=== PATIENT | female | born 1955 | race Caucasian/White ===

== ENCOUNTER 2024-09-06 20:49 | Emergency (ER) | payer MEDICARE, OTHER, SELFPAY ==
[2024-09-06 20:50] VITALS: BP 167/98
[2024-09-06 21:26] LABS: % Basophils 0.4 % (0-2); % Eosinophils 1.4 % (0-6); % Immature Granulocytes 0.2 % (0-0.5); % Lymphocytes 22.5 % (20.5-51.1); % Monocytes 6.8 % (1.7-9.3); % Neutrophils 68.7 % (42.2-75.2); Absolute Eosinophils 0.1 10^3/uL (0-0.7); Absolute Lymphocytes 2.1 10^3/uL (1.2-3.4); Absolute Monocytes 0.6 10^3/uL (0.1-0.6); Absolute Neutrophils 6.5 10^3/uL (1.4-6.5); Hematocrit 39.9 % (37.0-47.0); Hemoglobin 13.8 g/dL (12.0-16.0); Mean Corp Hgb Conc. 34.6 g/dL (33.0-37.0); Mean Corpuscular Hgb 29.8 pg (27.0-31.0); Mean Corpuscular Volume 86.2 fL (81.0-99.0); Mean Platelet Volume 9.6 fL (7.4-10.4); Nucleated Red Blood Cells % 0 %; Platelet Count 239 10^3/uL (130-400); Red Blood Cell Count 4.63 10^6/uL (4.20-5.40); Red Cell Dist. Width 12.6 % (11.5-14.5); White Blood Cell Count 9.4 10^3/uL (4.8-10.8)
[2024-09-06 21:34] LABS: INR 0.99; PT 12.9 Sec (11.4-14.6)
[2024-09-06 21:35] LABS: APTT 26.7 Sec (23.4-35.0)
[2024-09-06 21:37] LABS: ALT (SGPT) 22 U/L (0-35); AST (SGOT) 26 U/L (14-36); Albumin 4.7 g/dl (3.5-5.0); Alkaline Phosphatase 66 U/L (38-126); Blood Urea Nitrogen 19 mg/dl (7-17); Carbon Dioxide 33 mmol/L (22-30); Chloride 102 mmol/L (98-107); Glucose 171 mg/dl (70-99); Potassium 4.8 mmol/L (3.5-5.1); Sodium 145 mmol/L (135-145); Total Bilirubin 0.4 mg/dl (0.2-1.3); Total Protein 7.4 g/dl (6.3-8.2); eGFR > 60.00
[2024-09-06 21:48] LABS: Troponin I < 0.012 ng/ml
[2024-09-06 22:51] VITALS: BP 151/73
--- NOTE | 2024-09-06 23:04 | ED.CVA ---
History of Present Illness
<PAMELA Mcmahon - Last Filed: 09/07/24 05:25>
General
Chief Complaint: CVA/TIA Symptoms
Source: patient and significant other
Exam Limitations: none
Time Seen by Provider: 09/06/24 23:04
Nursing documentation reviewed up to this point in time: agreed with
Onset of Stroke Symptoms
Onset of symptoms known: No
Time pt last seen normal is known: No
History of Present Illness
History of Present Illness:
Patient is a 69yo F w/ PMH of HLD presents w/ AMS for 2 hrs about 6 hours ago. Pt has since returned to baseline mental status. States she was at the gym she regularly goes to and forgot where she was/how to get home. manager desktop at the gym helped
her and came to take her home. He states that she had no memory of what happened when he came to gym, but she had since regained some memory of the incident. states the pt seemed out of it for about 1.5 hrs after he picked her up.
They consulted PCP who told them to come to ER. Denies any symptoms before or after memory lapse. Notes increased neck pain x1 week (hx of OA). She denies any recent head trauma. Reports mild, short-lived SOLORZANO after daily Flonase.
Review of Systems
<PAMELA Mcmahon - Last Filed: 09/07/24 05:25>
Review of Systems
Constitutional: Denies fever, fatigue or chills
Respiratory: Denies cough or trouble breathing
Cardiac: Denies chest pain, palpitations or syncope
ABD/GI: Denies abdominal pain, nausea, vomiting, diarrhea or constipated
: Denies dysuria, frequency or urgency
Musculoskeletal: Reports neck pain
Skin: Reports no symptoms
Neurological: Denies dizzy, headache, weakness or numbness
Psychiatric: Reports anxiety
Phy Exam
<PAMELA Mcmahon - Last Filed: 09/07/24 05:25>
General Physical Exam
General Presentation: well appearing
General age: appears stated age
General Skin: warm and dry
General Habitus: normal
General Mental: alert
ENT Exam
ENT Exam: normocephalic
Cardiovascular Exam
Cardiovascular Exam: regular rate/rhythm, no edema, no gallop and no murmur
Pulmonary Exam
Pulmonary Exam: lungs clear, no respiratory distress, no rales, no crackles, no rhonchi and no wheezing
Neurological Exam
Neurological Exam: alert, oriented x3, no sensory deficits, speech normal, cerebellum intact and normal gait
Course
Cristhianlt;Roma Barron [facility] - Last Filed: 09/07/24 05:25>
Orders/Labs/Results
Orders:
Orders
09/06/24 20:56
Electrocardiogram (*1) Urgent
Reason for Study: Vertigo / Dizzy
CT Head W/o Iv Contrast Urgent
Comment:
Reason For Exam: memory loss
09/06/24 20:57
EKG- Treatment ONCE
09/06/24 21:09
Complete Blood Count/With Diff Urgent
Comprehensive Metabolic Panel Urgent
PTT Urgent
Prothrombin Time Urgent
Troponin I Urgent
Abnormal Lab Results
09/06/24
21:09
Carbon Dioxide 33 H mmol/L
(22-30)
BUN 19 H mg/dl
(7-17)
Glucose 171 H mg/dl
(70-99)
09/06/24 21:09
09/06/24 21:09
Vital Signs
Initial and Last Documented VS:
Initial Vital Signs
Temp Pulse Resp BP Pulse Ox
99.4 F 110 17 167/98 95
09/06/24 20:50 09/06/24 20:50 09/06/24 20:50 09/06/24 20:50 09/06/24 20:50
Last Documented Vital Signs
Temp Pulse Resp BP Pulse Ox
99.4 F 92 18 137/70 97
09/06/24 20:50 09/07/24 01:00 09/07/24 01:00 09/07/24 01:00 09/07/24 01:00
<Larisa Hyatt, DO - Last Filed: 09/07/24 01:00>
Orders/Labs/Results
Orders:
Orders
09/06/24 20:56
Electrocardiogram (*1) Urgent
Reason for Study: Vertigo / Dizzy
CT Head W/o Iv Contrast Urgent
Comment:
Reason For Exam: memory loss
09/06/24 20:57
EKG- Treatment ONCE
09/06/24 21:09
Complete Blood Count/With Diff Urgent
Comprehensive Metabolic Panel Urgent
PTT Urgent
Prothrombin Time Urgent
Troponin I Urgent
Abnormal Lab Results
09/06/24
21:09
Carbon Dioxide 33 H mmol/L
(22-30)
BUN 19 H mg/dl
(7-17)
Glucose 171 H mg/dl
(70-99)
09/06/24 21:09
09/06/24 21:09
Vital Signs
Blood pressure: 137/70
Initial and Last Documented VS:
Initial Vital Signs
Temp Pulse Resp BP Pulse Ox
99.4 F 110 17 167/98 95
09/06/24 20:50 09/06/24 20:50 09/06/24 20:50 09/06/24 20:50 09/06/24 20:50
Last Documented Vital Signs
Temp Pulse Resp BP Pulse Ox
99.4 F 92 18 137/70 97
09/06/24 20:50 09/07/24 01:00 09/07/24 01:00 09/07/24 01:00 09/07/24 01:00
<PAMELA Mcmahon - Last Filed: 09/07/24 05:25>
*Critical Care Note
Total Time (30-74mins, 75-104mins- exclusive of procedures): Not Applicable
<Larisa Hyatt DO - Last Filed: 09/07/24 01:00>
*Radiology
Radiology exam reviewed: radiology read reviewed (CT of the head is unremarkable)
*Pulse Oximetry
Patient hypoxic: no
*EKG
Interpreted by ED Provider?: Yes
Comparison EKG: no comparison EKG present
Rate: tachycardiac
Rhythm: sinus
[place]: normal axis
Interval: normal interval
QRS Pattern: normal QRS
Ischemia: no ischemia
*Bobbin Coil Winder Interpretation
Rate: normal
Interpretation: normal
Rhythm: sinus
ED Attending Note
<PAMELA Mcmahon - Last Filed: 09/07/24 05:25>
-
Portions of this chart may have been created with voice recognition software.� Occasional wrong word or��sound alike� substitutions may have occurred due to the inherent limitations of voice recognition software.
<Larisa Hyatt DO - Last Filed: 09/07/24 01:00>
ED Attending Note
Patient seen and examined by attending physician: Yes
I performed the substantive portion of visit, reviewed & personally made and approve the management plan that is documented in note by myself or VINOD.: Yes
ED Attending Note:
This is a 69-year-old woman who resides at home with her . She has remote history of breast cancer undergoing lumpectomy 2004 then bilateral mastectomy 2008. 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
her pelvic bone a number of years ago. She does follow annually with oncologist at [place] and thus far no recurrence.
She has history of anxiety/depression chronically maintained on Effexor, trazodone.
She is generally quite active, works out on a regular basis and while at the gym tonight she developed sudden onset of confusion, asked for help from a stranger that she could not remember where she was, was able to to be directed to the desk, now
remembers that she recognized the staff and they helped her to call her who picked her up from the gym and brought her home. She had no difficulty with her speech, no word searching, no difficulty with ambulation, no dizziness nor
lightheadedness but remains somewhat confused with lapse in memory which eventually resolved in approximately an hour and a half.
No history of similar episodes in the past. She denies fall, denies headache. She states she believes she was never alone at the gym.
Upon review of limited records, patient has history of shoulder tendinitis and evaluated by orthopedics May 2020 as well as 2020. In 2019 she underwent MRI of her shoulders and cervical spine and there is mention of a C3 vertebral lesion
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 At that time recommended she follow-up with her oncologist. Patient does note some chronic neck pain, nonradiating and follows at least annually with her oncologist and had been
evaluated by renderer but does not recall concern for cervical spine metastasis nor bony metastatic disease other than focal plasmacytoma of pelvic bone.
She does not smoke nor drink alcohol, no drug use.
Currently feeling well and back to baseline.
GENERAL: Alert , in no apparent distress
EYE: pupils equal and reactive. anicteric
NECK: Supple, nontender, no meningismus, no significant adenopathy.
ENT: posterior pharynx is clear, oral mucosa is moist. TM clear b/l, nares patent.
CARDIAC: Regular rate and rhythm. no murmur.
LUNGS: Clear breath sounds bilaterally, no acute respiratory distress, no wheezes/rales/rhonchi
ABDOMEN: Soft, nondistended, without focal tenderness, no r/g, no cvat. normoactive BS.
NEUROLOGICAL: Alert and oriented x3, no focal neuro deficits. Gait is ríos and steady.
SKIN: Warm and dry, normal color, skin intact. No rash.
MUSCULOSKELETAL: No C/C/E. peripheral pulses are full and equal b/l. No palpable tenderness.
PSYCH: Normal and appropriate interaction.
Patient presents with episode of transient global amnesia fasting approximately an hour and a half.
Concern for TIA, occult seizure. No witnessed syncope and the head is atraumatic thus postconcussion is unlikely.
With prior history of breast cancer, other consideration is occult metastatic disease.
CT of the head is unremarkable.
Labs are unremarkable.
Random glucose 171. Patient has no history of diabetes or prediabetes.
EKG shows mild sinus tachycardia otherwise unremarkable. Sinus tachycardia has since resolved.
Mild hypertension initially has resolved without intervention.
ABCD2 score of 3.
Will discharge to home with recommendations for prompt follow-up with PCP as well as oncologist.
Recommend prompt follow-up with neurology as well.
Recommend she take it easy this weekend, avoid driving, stay well-hydrated.
Strict return precautions discussed.
Discharge Plan
Departure
Patient Disposition: Home (Routine Discharge)
Date of Disposition: 09/07/24
Time of Disposition: 00:44
Patient with high blood pressure during this ER visit?: No
Condition: Good
Discharge Problem:
Transient global amnesia
Instructions: Amnesia
Referrals:
Rudolph Marmolejo MD [Active] - Call in 1-3 days for appt
Mikki Gallagher MD [Family Provider] - Call in 1-3 days for appt
Activity Restrictions/Additional Instructions:
Follow-up with your oncologist regarding episode of confusion/amnesia tonight.
My review of limited records; orthopedics evaluation May 2020 discusses results of shoulder MRI and cervical spine MRI with note of a C3 vertebral lesion concerning for metastasis. At that time May 2020 recommended that you follow-up with your
primary oncologist. You have been following regularly with your oncologist thus I suspect this was followed up but I did not have access to outside records to review.
I recommend you rest this weekend, avoid driving at least over the next several days until follow-up with your PCP, oncologist and we also recommend follow-up with neurology as well.
Interventions
Interventions:
*Risk Screen - Suicide Last Done: 09/06/24 20:55
*General Assessment Last Done: 09/07/24 00:25
*Neglect/Abuse Screening Last Done: 09/07/24 00:49
ED- Fall Risk Assessment Last Done: 09/07/24 00:27
*ED COVID-19 Vaccine History Last Done: 09/07/24 00:59
*Nursing Disposition Last Done: 09/07/24 01:00
ED- Pulmonary Assessment Last Done: 09/06/24 22:50
ED- Neurological Assessment Last Done: 09/06/24 22:50
ED- Cardiac Assessment Last Done: 09/06/24 22:50
ED Swallowing Screen Last Done: 09/07/24 00:49
Discharge Date and Time
Discharge Date/Time: 09/07/24 01:01
Print Language: [id number]
[2024-09-07 00:28] VITALS: BP 169/79
[2024-09-07 01:00] VITALS: BP 169/79
== END 2024-09-07 01:01 | disposition home or self-care (01) ==
LOC: EMR 20:49
PROVIDERS: Emergency Medicine; EMERGENCY PHYSICIAN Emergency Medicine; FAMILY PHYSICIAN Internal Medicine
DX: G45.4 Transient global amnesia (principal); E78.5 Hyperlipidemia, unspecified; Z85.3 Personal history of malignant neoplasm of breast; Z90.13 Acquired absence of bilateral breasts and nipples; Z92.3 Personal history of irradiation
CPT/HCPCS: 99284; 70450; 80053; 84484; 85025; 85610; 85730; 93005

== ENCOUNTER → 2025-06-21 08:39 | Outpatient (REF) | payer OTHER, SELFPAY | LOC: MRI 08:39 | PROVIDERS: ATTENDING PHYSICIAN Specialist; FAMILY PHYSICIAN Internal Medicine | DX: M25.511 Pain in right shoulder (principal) | CPT/HCPCS: 73221 ==